=== PATIENT | male | born 1935 | race Caucasian/White ===

== ENCOUNTER 2016-08-05 02:00 | Emergency (ER) | payer MEDICARE, OTHER ==
[~2016-08-05] VITALS: Ht 172.7 cm; Wt 52.2 kg
[~2016-08-05 02:00] MED LIST: AMLO10TA2 PO; ASPI-630 PO; TAMS0.4C97 PO
--- NOTE | 2016-08-05 03:04 | RAD ---
CT HEAD AND CERVICAL SPINE WITHOUT CONTRAST History: 80-year-old male with head and neck pain after fall. Comparison: None. Procedure: Axial images are obtained of the head from the skull base through the vertex without IV contrast. Noncontrast helical CT of the cervical spine was performed. Axial, sagittal, and coronal reconstructions were obtained. PQRS compliance statement: One or more of the following individualized dose reduction techniques were utilized for this examination: 1. Automated exposure control 2. Adjustment of the mA and/or kV according to patient size 3. Use of iterative reconstruction technique Head Findings: The ventricles and sulci appear age-appropriate. No mass-effect, midline shift, hemorrhage or obvious acute infarction is identified. Diffuse periventricular and subcortical white matter low-attenuation is nonspecific although suggestive of chronic microvascular ischemia. Bone windows demonstrate no significant calvarial abnormality. Scattered mucosal thickening is present within the visualized paranasal sinuses. Mastoid air cells are well aerated. A couple lipomas are seen within the left scalp. Cervical Spine Findings: There is no evidence of acute fracture or dislocation. Normal cervical lordosis and alignment is maintained. Vertebral body heights are maintained. Posterior elements are intact. Significant degenerative changes are present throughout. Visualized soft tissues of the neck demonstrate no significant abnormalities. The visualized lung apices are clear, with prominent emphysematous changes present. IMPRESSION: 1. No acute intracranial abnormality. 2. No acute fracture of the cervical spine. Electronically signed by: Naty Pabon MD (08/05/2016 3:00 AM)
[2016-08-05 03:08] LABS: BASO # 0.1 x10^3/uL (0.0-0.2); BASO % 0 % (0-3); EOS % 0 % (0-3); HEMATOCRIT 42.4 % (39.0-53.0); LYMPH # 1.3 x10^3/uL (1.0-4.8); LYMPH % 6 % (24-48); MEAN CORPUSCULAR HEMOGLOBIN 31 pg (25-35); MEAN CORPUSCULAR HGB CONC 33 g/dL (31-37); MEAN CORPUSCULAR VOLUME 94 fL (79-100); MONO % 7 % (0-9); NEUT % 87 % (31-73); PLATELET COUNT 312 x10^3/uL (140-400); RED BLOOD COUNT 4.52 x10^6/uL (4.30-5.70); RED CELL DISTRIBUTION WIDTH 14.1 % (11.5-14.5); WHITE BLOOD COUNT 20.7 x10^3/uL (4.0-11.0)
[2016-08-05 03:09] LABS: BILIRUBIN,URINE NEGATIVE (NEG); GLUCOSE,URINE NEGATIVE (NEG); NITRITE,URINE NEGATIVE (NEG); PROTEIN,URINE 100 mg/dL (NEG-TRACE); UROBILINOGEN,URINE 0.2 mg/dL (0.2 mg/dL)
[2016-08-05 03:21] LABS: BACTERIA,URINE FEW /HPF (0-FEW); RBC,URINE TNTC /HPF (0-2); SQUAMOUS EPITHELIAL CELL,UR FEW /LPF; WBC,URINE >40 /HPF (0-4)
[2016-08-05 03:22] LABS: CALCIUM 9.4 mg/dL (8.5-10.1); CREATININE 1.8 mg/dL (0.7-1.3); GFR 36.4; POTASSIUM 3.5 mmol/L (3.5-5.1)
[2016-08-05 03:29] LABS: ALBUMIN 3.6 g/dL (3.4-5.0); TOTAL BILIRUBIN 0.6 mg/dL (0.2-1.0); TOTAL PROTEIN 7.3 g/dL (6.4-8.2)
[2016-08-05 04:00] VITALS: BP 198/111
--- NOTE | 2016-08-05 04:08 | ED.ADGEN ---
Past Medical History Past Medical History: Hypertension Additional Past Medical Histor: chonic kidney disease,syncopy,bph Past Surgical History: Other Additional Past Surgical Histo: UNKNOWN Alcohol Use: Occasionally Drug Use: None Adult General Chief Complaint Chief Complaint: BLOOD IN URINE HPI HPI Patient is a 80 [facility] history of dementia who presents with fall from standing, and urethral trauma after removing the catheter. she was found covered in blood after the Mcmahan catheter was removed by the patient. There is a small left frontal scalp hematoma without evidence of additional injury. The fall was not witnessed the patient is alert oriented to person but not place and time and situation cannot call the circumstances surrounding his fall. recent no witnessed or reported loss of consciousness. History is otherwise limited. Review of Systems Review of Systems ROS as per HPI. Current Medications Current Medications Current Medications Medications (Trade) Dose Ordered Sig/[place] Start Time Stop Time Status Last Admin Dose Admin Levofloxacin (Levaquin) 750 mg 1X ONCE 08/05/16 04:00 08/05/16 04:01 Allergies Allergies Allergies Coded Allergies Type Severity Reaction Last Updated Verified No Known Drug Allergies 07/30/16 No Physical Exam Physical Exam Constitutional: Well developed, well nourished, no acute distress, non-toxic appearance. HENT: Normocephalic, minor left scalp hematoma., bilateral external ears normal , oropharynx moist, no oral exudates, nose normal. Eyes: PERRL. Neck: Normal range of motion, no midline tenderness. Cardiovascular:Heart rate regular rhythm, no murmur. Lungs & Thorax: Bilateral breath sounds clear to auscultation. Abdomen: Bowel sounds normal, soft, no tenderness. , dried blood on urethral. Skin: Warm, dry. Back: No tenderness. Extremities: No tenderness. Neurologic: Alert and oriented X 1, normal motor function, normal sensory function, no focal deficits noted. Psychologic: Affect normal, judgement normal, mood normal. Current Patient Data Vital Signs Vital Signs Date Time Temp Pulse Resp B/P (MAP) Pulse Ox O2 Delivery O2 Flow Rate FiO2 08/05/16 02:01 97.8 98 20 220/91 (134) 98 Room Air 97.8 Lab Values Laboratory Tests Test 08/05/16 02:40 08/05/16 02:47 White Blood Count 20.7 x10^3/uL (4.0-11.0) #H Red Blood Count 4.52 x10^6/uL (4.30-5.70) Hemoglobin 14.0 g/dL (13.0-17.5) Hematocrit 42.4 % (39.0-53.0) Mean Corpuscular Volume 94 fL (79-100) Mean Corpuscular Hemoglobin 31 pg (25-35) Mean Corpuscular Hemoglobin Concent 33 g/dL (31-37) Red Cell Distribution Width 14.1 % (11.5-14.5) Platelet Count 312 x10^3/uL (140-400) Neutrophils (%) (Auto) 87 % (31-73) H Lymphocytes (%) (Auto) 6 % (24-48) L Monocytes (%) (Auto) 7 % (0-9) Eosinophils (%) (Auto) 0 % (0-3) Basophils (%) (Auto) 0 % (0-3) Neutrophils # (Auto) 18.0 x10^3uL (1.8-7.7) H Lymphocytes # (Auto) 1.3 x10^3/uL (1.0-4.8) Monocytes # (Auto) 1.4 x10^3/uL (0.0-1.1) H Eosinophils # (Auto) 0.0 x10^3/uL (0.0-0.7) Basophils # (Auto) 0.1 x10^3/uL (0.0-0.2) Platelet Estimate Pending Sodium Level 137 mmol/L (136-145) Potassium Level 3.5 mmol/L (3.5-5.1) Chloride Level 97 mmol/L (98-107) L Carbon Dioxide Level 31 mmol/L (21-32) Anion Gap 9 (6-14) Blood Urea Nitrogen 22 mg/dL (8-26) Creatinine 1.8 mg/dL (0.7-1.3) H Estimated GFR (Cockcroft-Gault) 36.4 BUN/Creatinine Ratio 12 (6-20) Glucose Level 125 mg/dL (70-99) H Calcium Level 9.4 mg/dL (8.5-10.1) Total Bilirubin 0.6 mg/dL (0.2-1.0) Aspartate Amino Transferase (AST) 28 U/L (15-37) Alanine Aminotransferase (ALT) 28 U/L (16-63) Alkaline Phosphatase 55 U/L (46-116) Total Protein 7.3 g/dL (6.4-8.2) Albumin 3.6 g/dL (3.4-5.0) Albumin/Globulin Ratio 1.0 (1.0-1.7) Urine Collection Type Unknown Urine Color Yellow Urine Clarity Clear Urine pH 7.0 Urine Specific [place] 1.010 Urine Protein 100 mg/dL (NEG-TRACE) Urine Glucose (UA) Negative mg/dL (NEG) Urine Ketones (Stick) Negative mg/dL (NEG) Urine Blood Large (NEG) Urine Nitrite Negative (NEG) Urine Bilirubin Negative (NEG) Urine Urobilinogen Dipstick 0.2 mg/dL (0.2 mg/dL) Urine Leukocyte Esterase Moderate (NEG) Urine RBC Tntc /HPF (0-2) Urine WBC >40 /HPF (0-4) Urine Squamous Epithelial Cells Few /LPF Urine Bacteria Few /HPF (0-FEW) Urine Hyaline Casts Few /HPF Laboratory Tests 08/05/16 02:40 Laboratory Tests 08/05/16 02:40 EKG EKG [] Radiology/Procedures Radiology/Procedures [] Course & Med Decision Making Course & Med Decision Making Pertinent Labs and Imaging studies reviewed. (See chart for details) [Mcmahan catheter reinserted. UA obtained, possible resistant urinary tract infection. Currently on Rocephin and oriented in some. Urine culture obtained positive for beta-lactam group B strep.Patient given single dose of Levaquin in the emergency department. New urine culture obtained. Patient resting comfortably afebrile not tachycardic. Will return to [facility] facility with instructions for [facility] staff to review urine culture results, Mcmahan catheter placement with [facility] attending with recommendations of repeat CBC and chemistry in 3 days. Dragon Disclaimer Dragon Disclaimer This electronic medical record was generated, in whole or in part, using a voice recognition dictation system. FLORENCIO STOKES DO Aug 05, 2016 04:08
[2016-08-05 05:27] LABS: PLT ESTIMATE ADEQUATE (ADEQUATE)
--- NOTE | 2016-08-05 19:08 | EKG ---
[facility] [address] [place] [address] Test Date: 2016-08-05 Test Time: 02:27:42 Pat Name: ELIAS DEJESUS Department: Room: Gender: M Mail Processor: : 1935 Requested By: FLORENCIO STOKES Order Number: [id number] Reading MD: Philipp Adams Measurements Intervals [place] Rate: 78 P: 90 [place]: 132 QRS: -55 QRSD: 114 T: 62 QT: 378 QTc: 434 Interpretive Statements SINUS RHYTHM LEFT ATRIAL ABNORMALITY ABNORMAL LEFT AXIS DEVIATION LEFT ANTERIOR FASCICULAR BLOCK LVH WITH REPOLARIZATION ABNORMALITY QRS(T) CONTOUR ABNORMALITY CANNOT RULE OUT old anteroseptal ME RI6.01 Unconfirmed report No previous ECG available for comparison Electronically Signed On 08-06-2016 15:47:41 CDT by Philipp Adams
== END 2016-08-05 05:00 | disposition home or self-care (01) ==
LOC: ER 02:00
DX: T83.89XA Other specified complication of genitourinary prosthetic devices, implants and grafts, initial encounter (principal); S00.03XA Contusion of scalp, initial encounter; F03.90 Unspecified dementia, unspecified severity, without behavioral disturbance, psychotic disturbance, mood disturbance, and anxiety; I12.9 Hypertensive chronic kidney disease with stage 1 through stage 4 chronic kidney disease, or unspecified chronic kidney disease; N18.9 Chronic kidney disease, unspecified; N40.0 Benign prostatic hyperplasia without lower urinary tract symptoms; X58.XXXA Exposure to other specified factors, initial encounter; Y93.9 Activity, unspecified; Y99.8 Other external cause status; Y73.8 Miscellaneous gastroenterology and urology devices associated with adverse incidents, not elsewhere classified; Y92.89 Other specified places as the place of occurrence of the external cause
CPT/HCPCS: 36415; 51702; 70450; 72125; 80053; 81001; 85007; 85027; 87086; 93005; P9612; 99285-25

== ENCOUNTER 2016-08-26 17:42 | Emergency (ER) | payer MEDICARE, OTHER ==
[~2016-08-26] VITALS: Ht 167.6 cm; Wt 54.4 kg
--- NOTE | 2016-08-26 18:13 | PHYS DOC ---
Past Medical History Past Medical History: Hypertension Additional Past Medical Histor: chonic kidney disease,syncopy,bph Past Surgical History: Other Additional Past Surgical Histo: UNKNOWN Alcohol Use: Occasionally Drug Use: None Adult General Chief Complaint Chief Complaint: MECHANICAL FALL HPI HPI Patient is a pleasant 80-year-old male with history of hypertension, syncope collapse, chronic UTI, sepsis, chronic kidney disease and encephalopathy who comes here from [facility] because of a fall he sustained early this morning. It was an unwitnessed fall patient claimed that he slid out of the bed onto the floor landing on his gluteus dusty on his right. He has no complaints other than soreness on his bottom. The [facility] refer him to our facility because he was apparently altered. Patient is quite reticent he removes the entire event. He has no loss of consciousness is no complaint of neck pain or back pain, no complaint of headache, no complaint of nausea, vomiting, chest pain or other symptoms. He has chronic right ankle pain without is not new. Patient is actually hungry and when the nurse left him his morning he was assumed she was getting some heat. And he remarked that she had not return. he was completely lucid and has no amnesia to the events. Though he is only able to transfer for wheel chair transfers movement today's not impeded by pain. Review of Systems Review of Systems Constitutional: Denies fever or chills [] Eyes: Denies change in visual acuity, redness, or eye pain [] HENT: Denies nasal congestion or sore throat [] Respiratory: Denies cough or shortness of breath [] Cardiovascular: No additional information not addressed in HPI [] GI: Denies abdominal pain, nausea, vomiting, bloody stools or diarrhea [] : Denies dysuria or hematuria [] Musculoskeletal: Denies back pain or he does complain of right ankle pain which is chronic in nature and gluteal pain on the right. Integument: Denies rash or skin lesions [] Neurologic: Denies headache, focal weakness or sensory changes [] Endocrine: Denies polyuria or polydipsia [] Allergies Allergies Allergies Coded Allergies Type Severity Reaction Last Updated Verified No Known Drug Allergies 07/30/16 No Physical Exam Physical Exam he is thin cachectic vital signs are noted. Constitutional: Well developed, well nourished, no acute distress, non-toxic appearance. [] HENT: Normocephalic, atraumatic, bilateral external ears normal, dry mm no oral exudates, nose normal. [] Eyes: PERRLA, EOMI, conjunctiva normal, no discharge. [] Neck: Normal range of motion, no tenderness, supple, no stridor. [] Cardiovascular:Heart rate regular rhythm, no murmur [] Lungs & Thorax: Bilateral breath sounds clear to auscultation [] Abdomen: Bowel sounds normal, soft, no tenderness, no masses, no pulsatile masses. [] Skin: Warm, dry, bruises in various states of healing upper external is bilaterally. As noted varicosities in the lower extremity bilaterally. He's got a small contusion over the middle aspect of the gluteus dusty on the right right over the inferior ramus of the buttocks. Back: No tenderness, no CVA tenderness. [] Extremities: No tenderness, no cyanosis, no clubbing, ROM intact, no edema. [] Neurologic: Alert and oriented X 3 patient is at baseline with normal 4 out of 5 strength in his lower extremities Psychologic: Affect normal, judgement normal, mood normal. [] Patient is quite lucid and remembers the events. Current Patient Data Vital Signs Vital Signs Date Time Temp Pulse Resp B/P (MAP) Pulse Ox O2 Delivery O2 Flow Rate FiO2 08/26/16 17:44 98.1 77 18 191/81 (117) 95 Room Air 98.1 EKG EKG [] Radiology/Procedures Radiology/Procedures [] Course & Med Decision Making Course & Med Decision Making Pertinent Labs and Imaging studies reviewed. (See chart for details) I reviewed vital signs, this patient's history and physical as well as EMS report. Patient has a gait disturbance and slipped out of his bed this morning onto the hard concrete ground. He did not discussed as he denies any neck pain or headache he denies any focal bony tenderness to palpation other than on his bottom when he landed. Given the fact that he has no loss of consciousness and he is completely remembering the event patient only had pelvis and hip x-rays done on the right. Pain is mild at best he is able to move in the bed without issue. X-rays are negative he will be [facility]. [] Patient's 4 view x-ray of his hip and pelvis reveal no fracture the pelvic ring looks intact. Patient is in minimal pain and will be discharged [facility] to [facility] Patient tells me that their symptoms given during CC are improved. We reviewed radiology reports with patient Time is now 6:56 PM Impression: Fall out of bed with no apparent injury other than the hip contusion Disposition: Discharge back to the fci. Dragon Disclaimer Dragon Disclaimer This electronic medical record was generated, in whole or in part, using a voice recognition dictation system. Departure Departure Impression: Primary Impression: Accident due to mechanical fall without injury Additional Impression: Contusion of hip, right Disposition: 01 HOME, SELF-CARE Condition: STABLE Referrals: NO PCP (PCP) Patient Instructions: Contusion, Fall Prevention and Home Safety Additional Instructions: Please return for any new or increasing symptoms or feel any question concerns. Return for any change in mental status or if there are new symptoms you would like us to investigate Problem Qualifiers NABEEL ZULUAGA MD Aug 26, 2016 18:13
[2016-08-26 20:12] VITALS: BP 207/99
--- NOTE | 2016-08-27 09:47 | RAD ---
Indication fall. Pain. Right hip pain. Targeted AP and lateral views of the right hip were obtained as well as 2 AP views of the pelvis. No acute bony finding is seen. Moderately extensive vascular calcification is noted. IMPRESSION:: No acute bony finding
== END 2016-08-26 20:23 | disposition home or self-care (01) ==
LOC: ER 17:42
DX: S70.01XA Contusion of right hip, initial encounter (principal); I12.9 Hypertensive chronic kidney disease with stage 1 through stage 4 chronic kidney disease, or unspecified chronic kidney disease; N18.9 Chronic kidney disease, unspecified; G89.29 Other chronic pain; N40.0 Benign prostatic hyperplasia without lower urinary tract symptoms; W06.XXXA Fall from bed, initial encounter; Y93.89 Activity, other specified; Y92.89 Other specified places as the place of occurrence of the external cause; Y99.8 Other external cause status; Z87.440 Personal history of urinary (tract) infections
CPT/HCPCS: 73502; 99284

== ENCOUNTER 2016-09-18 06:47 | Observation (INO) | payer MEDICARE, OTHER ==
[~2016-09-18] VITALS: Ht 167.6 cm; Wt 47.3 kg
[2016-09-18] VITALS (14 sets, daily range): BP systolic 162–232; BP diastolic 72–114
[2016-09-18] MEDS ORDERED: PROCHLORPERAZINE 10 MG/2 ML VIAL. IV PRN (07:00)
[2016-09-18] MEDS ORDERED: ONDANSETRON PF 4 MG/2 ML VIAL. IV PRN (07:00)
[2016-09-18] MEDS ORDERED: HYDROmorphone 2 MG/ML VIAL IV PRN (07:00)
[2016-09-18] MEDS ORDERED: MORPHINE SULFATE 2 MG/ML DISP.SYRIN. IV PRN (07:00)
[2016-09-18] MEDS ORDERED: IV RINGERS,LACTATED 1000ML 1,000 ML IV SCH (07:00)
[2016-09-18] MEDS ORDERED: LIDOCAINE 1% 1 ML SYRINGE. ID PRN (07:00)
[2016-09-18] MEDS ORDERED: fentaNYL PF VIAL 100 MCG/2 ML VIAL IV PRN ×2 (07:00)
[2016-09-18] MEDS ORDERED: Mylanta PO (07:31)
[2016-09-18] MEDS ORDERED: POTA20TA82 PO (07:31)
[2016-09-18] MEDS ORDERED: TAMS0.4C97 PO (07:31)
[2016-09-18] MEDS ORDERED: Lidoderm TD (07:31)
[2016-09-18] MEDS ORDERED: DOCU-109 PO (07:31)
[2016-09-18] MEDS ORDERED: MAGN400O7 PO (07:31)
[2016-09-18] MEDS ORDERED: FINA5TAB PO (07:31)
[2016-09-18] MEDS ORDERED: ACET325T9 PO (07:31)
[2016-09-18] MEDS ORDERED: HYDR-2867 PO (07:31)
[2016-09-18] MEDS ORDERED: AMLO10TA4 PO (07:31)
[2016-09-18] MEDS ORDERED: BISA-42 PO (07:31)
[2016-09-18 07:50] LABS: HEMATOCRIT 28.8 % (39.0-53.0); RED BLOOD COUNT 3.17 x10^6/uL (4.30-5.70); RED CELL DISTRIBUTION WIDTH 14.7 % (11.5-14.5); WHITE BLOOD COUNT 17.3 x10^3/uL (4.0-11.0)
[2016-09-18 07:58] LABS: CALCIUM 8.4 mg/dL (8.5-10.1); CREATININE 1.3 mg/dL (0.7-1.3); GFR 52.9
[2016-09-18 08:00] LABS: POTASSIUM 2.4 mmol/L (3.5-5.1)
[2016-09-18 08:01] LABS: INR 0.9 (0.8-1.1); PROTHROMBIN TIME PATIENT 11.9 SEC (11.7-14.0)
[2016-09-18] MEDS ORDERED: POTASSIUM CHLORIDE 20 MEQ TABLET.ER. PO ONE (08:15)
[2016-09-18] MEDS ORDERED: POTASSIUM CHLORIDE 20MEQ 50 ML IV ONE (08:15)
[2016-09-18] MEDS: POTASSIUM CHLORIDE 10MEQ 100 ML IV SCH ×2 (08:36→10:14)
[2016-09-18] MEDS ORDERED: BISACODYL 5 MG TABLET.DR. PO PRN (09:45)
[2016-09-18] MEDS ORDERED: ACETAMINOPHEN 325 MG TABLET. PO PRN (09:45)
[2016-09-18] MEDS ORDERED: hydrALAZINE 20 MG/ML VIAL. IVP ONE (10:00)
[2016-09-18] MEDS: LABETALOL 20 MG/4 ML DISP.SYRIN. IVP PRN ×2 (12:54→22:47)
[2016-09-18] MEDS ORDERED: IODIXANOL 320 MG/ML 100 ML VIAL. ONE (13:27)
[2016-09-18] MEDS ORDERED: LIDOCAINE 2% 20 ML VIAL. ONE (13:27)
[2016-09-18] MEDS ORDERED: MIDAZOLAM HCL/PF 2 MG/2 ML VIAL. ONE (13:56)
[2016-09-18] MEDS ORDERED: fentaNYL PF VIAL 100 MCG/2 ML VIAL ONE (13:57)
[2016-09-18] MEDS ORDERED: fentaNYL PF VIAL 100 MCG/2 ML VIAL IV ONE (14:00)
[2016-09-18] MEDS ORDERED: IODIXANOL 320 MG/ML 100 ML VIAL. IART ONE (14:00)
[2016-09-18] MEDS ORDERED: MIDAZOLAM HCL/PF 2 MG/2 ML VIAL. IV ONE (14:00)
[2016-09-18] MEDS ORDERED: LIDOCAINE 2% 20 ML VIAL. IJ ONE (14:00)
[2016-09-18] MEDS ORDERED: CONTRAST GIVEN MC PRN (14:00)
[2016-09-18] MEDS ORDERED: BIVALIRUDIN 250 MG VIAL. IV ONE ×2 (14:31→14:45)
[2016-09-18] MEDS ORDERED: VERAPAMIL 5 MG/2 ML VIAL. ONE ×2 (14:43)
[2016-09-18] MEDS ORDERED: HEPARIN for IV BOLUS 10,000 UNIT/10 ML VIAL. ONE (14:44)
[2016-09-18] MEDS ORDERED: NITROGLYCERIN 4MG SYRINGE 4 MG, VERAPAMIL 10 MG, HEPARIN SODIUM 4,000 UNIT, VIPERSLIDE ... IART ONE ×5 (15:00)
[2016-09-18] MEDS ORDERED: TICAGRELOR 90 MG TABLET. ONE (15:15)
[2016-09-18] MEDS ORDERED: TICAGRELOR 90 MG TABLET. PO ONE (15:30)
[2016-09-18] MEDS ORDERED: NITROGLYCERIN 200 MCG/2 ML SYRINGE FOR CATH/VASC LAB. IART ONE (15:30)
[2016-09-18] MEDS ORDERED: NITROGLYCERIN SUBLINGUAL 0.4 MG BOTTLE OF 25. SL ONE (15:45)
[2016-09-18] MEDS: hydrALAZINE 10 MG TABLET PO SCH ×2 (15:55→20:33)
--- NOTE | 2016-09-18 17:01 | CARD ---
APPROVED REPORT Procedure(s) performed: SEDATION TIME: 151 MINUTES Left heart cath, Coronary angiography, Supravalvular aortography HISTORY The patient is a 81 year-old male with a history of : previous CHF, tobacco history() , hypertension, dyslipidemia. INDICATION The indication(s) include : dyspnea. CASE TECHNIQUE During this case, Fluoroscopy and low osmolar contrast were used for imaging. PROCEDURE NARRATIVE The patient was brought electively to the cardiac catheterization lab. A timeout was performed confi rming the patient's name, date of , procedure, and site of procedure. All necessary personnel w ere wearing the appropriate protective equipment and radiation monitor devices. After explaining the risks and benefits of the procedure and alternatives, informed consent was obtained. (See nursing no milo for medications administered). The right groin was sterilely prepped and draped in the usual fas hion. The right groin was infiltrated with 20 mL of 2% lidocaine for subcutaneous anesthesia. A 6 F sheath was inserted into the right femoral artery without difficulty via the modified seldinger techn ique with an 18G needle and a J-tipped guidewire. Due to severe iliac PAD, there was difficulty advan cing a J-tipped guide wire and therefore a [place]-wire advantage wire was used to tranverse the calcif ic inflow disease. Subsequently, right and left coronary angiography was performed using standard JR4 and JL4 diagnostic catheters. Left ventricular end diastolic pressure was obtained with a pigtail c atheter and pullback was performed after left ventriculography. HEMODYNAMICS: LVEDP 26 mm Hg AO: 180/62 *No gradient on LV to aortic pullback. Aortography: Mild to moderate eccentric aortic insufficiency. CORONARY ANGIOGRAPHY: LM is a large caliber vessel with normal angiographic appearance. LAD is a large caliber heavily calcified vessel a mid 80% stenosis. D1/D2 are small caliber vessels with ostial 70% stenosis. LCx is a moderate caliber non-dominant vessel with a proximal to mid 50% stenosis. OM1 is a large caliber vessel with normal angiographic appearance. RCA is a large caliber dominant vessel with a proximal 20% stenosis. RPDA and RPL are small to caliber vessels with mild diffuse irregularities of up to 10%. INTERVENTIONAL TECHNIQUE: PCI OF THE LAD Bivalirudin was used for anticoagulation. Initial angioplasty with a 3.5 mm balloon was unsuccessful due to heavy calcification. Subsequently rotational atherectomy was performed and then the lesion was stented. Guide: 6Fr EBU 3.75 Wire: ProCSRware, Rotablator Balloons: 2.0/15, 3.5/20, 3.5/15 (NC) Atherectomy: 1.5 mm [place] Stent: 3.5/33 Xience AZAR, Post-dilated with a 3.75mm NC balloon at 18 waqar. Post-PCI angiography revealed excellent stent expansion with JUANITA 3 flow in the LAD and no evidence o f guide or wire related complications. Limited right common femoral angiography demonstrated an 80% external iliac stenosis as well as a flu sh occlusion of the RSFA. Hemostasis was achieved with manual compression as the mynx closure device failed. Patient received Ticagrelor 180mg at case completion. No immediate complications noted. Conclusion 1. Two vessel CAD 2. Successful PTCA/Atherectomy and stenting of the LAD with a Xience 3.5/33 AZAR, post-dilated with a 3.75mm NC balloon. 3. Severe RLE PAD Recommendations ASA 81mg daily indefinitely Ticagrelor 90mg bid x 1 year. Cardiac rehab. BP control. Staged PVI of the RLE in 4 weeks.
[2016-09-18] MEDS ORDERED: amLODIPine BESYLATE 10 MG TABLET PO ONE (20:00)
[2016-09-18] MEDS: TAMSULOSIN 0.4 MG CAP.ER.24H. PO SCH (20:32)
[2016-09-18] MEDS: DOCUSATE SODIUM 100 MG CAPSULE. PO SCH (20:33)
[2016-09-19 03:00] VITALS: BP 178/81
[2016-09-19] MEDS ORDERED: hydrALAZINE 20 MG/ML VIAL. IVP PRN (04:00)
[2016-09-19 07:30] VITALS: BP 188/81
[2016-09-19] MEDS: TAMSULOSIN 0.4 MG CAP.ER.24H. PO SCH (08:43)
[2016-09-19] MEDS: DOCUSATE SODIUM 100 MG CAPSULE. PO SCH (08:44)
[2016-09-19] MEDS: hydrALAZINE 10 MG TABLET PO SCH (08:44)
[2016-09-19] MEDS ORDERED: FINASTERIDE 5 MG TABLET. PO SCH (09:00)
[2016-09-19] MEDS ORDERED: amLODIPine BESYLATE 10 MG TABLET PO SCH (09:00)
[2016-09-19] MEDS ORDERED: ASPIRIN CHEWABLE 81 MG TABLET. PO SCH (09:00)
[2016-09-19] MEDS ORDERED: TICAGRELOR 90 MG TABLET. PO SCH (09:00)
[2016-09-19 11:00] VITALS: BP 162/71
--- NOTE | 2016-09-19 12:02 | PDOC3 ---
TENISHA BURKS BUS TRANSPORTATION MANAGER 09/19/16 1202: Discharge Summary Visit Information Date of Admission: Sep 18, 2016 Date of Discharge: Sep 19, 2016 Admitting Diagnosis: CAD Final Diagnosis CAD with PCI/AZAR, PAD Brief Hospital Course Allergies Allergies Coded Allergies Type Severity Reaction Last Updated Verified No Known Drug Allergies 07/30/16 No Vital Signs Vital Signs Date Time Temp Pulse Resp B/P (MAP) Pulse Ox O2 Delivery O2 Flow Rate FiO2 09/19/16 11:00 98.3 69 18 162/71 (101) 95 Room Air 98.3 09/18/16 15:38 2.0 Lab Results Laboratory Tests Test 09/18/16 07:40 White Blood Count 17.3 x10^3/uL (4.0-11.0) Red Blood Count 3.17 x10^6/uL (4.30-5.70) Hemoglobin 10.0 g/dL (13.0-17.5) Hematocrit 28.8 % (39.0-53.0) Mean Corpuscular Volume 91 fL (79-100) Mean Corpuscular Hemoglobin 31 pg (25-35) Mean Corpuscular Hemoglobin Concent 35 g/dL (31-37) Red Cell Distribution Width 14.7 % (11.5-14.5) Platelet Count 390 x10^3/uL (140-400) Prothrombin Time 11.9 SEC (11.7-14.0) Prothromb Time International Ratio 0.9 (0.8-1.1) Activated Partial Thromboplast Time 26 SEC (24-38) Sodium Level 135 mmol/L (136-145) Potassium Level 2.4 mmol/L (3.5-5.1) Chloride Level 94 mmol/L (98-107) Carbon Dioxide Level 34 mmol/L (21-32) Anion Gap 7 (6-14) Blood Urea Nitrogen 15 mg/dL (8-26) Creatinine 1.3 mg/dL (0.7-1.3) Estimated GFR (Cockcroft-Gault) 52.9 Glucose Level 100 mg/dL (70-99) Calcium Level 8.4 mg/dL (8.5-10.1) Brief Hospital Course Mr Samuels is an 81 yo male admitted for further evaluation of his as he was deemed with severe via TTE with notable increasing dyspnea. LHC was performed and he was noted with 2VD. Successful PTCA/atherectomy with AZAR to his LAD was performed via right transfemoral approach which he was noted with severe iliac PAD. Aortography revealed mild to moderate eccentric aortic insufficiency. He tolerated the procedure well with no complications. Right groin arteriotomy site with bruising otherwise no swelling, significant pain, erythema and neurovascular status to bilateral LE intact. He is alert cooperative with periods of confusion. His mobility is limited and mainly utilize WC at the long term. Denies any discomfort overnight, LSCTA, abdomen soft and nontender and no significant rhythm ectopies noted. His feet are equally warm without any wounds or paresthesia. With the findings of PAD, arterial duplex has been ordered and will further discuss with pt and family in 2 weeks time. His VS has been table but his BP has been labile and his hydralazine has been increased and added low dose toprol and imdur. Unable to place on any ACEi at this time due to amount of contrast use and will reevaluate further use pending his follow up BMP and in next follow up in 2 weeks. If BP is improves then pt is to go back to [facility] and continue with brilinta and ASA combo including statin. I did discussed this with his sons in regards to his treatment plan and possible further workup in regards to his PAD. Discharge Information Condition at Discharge: Stable Follow Up: Weeks (2) Disposition/Orders: D/C to Another Facility Scheduled Amlodipine Besylate (Norvasc), 10 MG PO DAILY, (Reported) Aspirin (Aspirin), 1 TAB PO DAILY, (Reported) Docusate Sodium (Colace), 1 CAP PO BID, (Reported) Finasteride (Proscar), 5 MG PO DAILY, (Reported) Hydralazine Hcl (Hydralazine Hcl), 1 TAB PO BID Isosorbide Mononitrate (Isosorbide Mononitrate Er), 1 TAB PO DAILY Magnesium Hydroxide (Milk Of Magnesia), 400 MG PO DAILY, (Reported) Potassium Chloride (Potassium Chloride), 20 MEQ PO DAILY, (Reported) Tamsulosin Hcl (Flomax), 0.4 MG PO BID, (Reported) Ticagrelor (Brilinta), 90 MG PO BID [Lidoderm], TD DAILY, (Reported) [Mylanta], 30 ML PO DAILY, (Reported) Scheduled PRN Acetaminophen (Tylenol), 650 MG PO PRN Q4HRS PRN for PAIN, (Reported) Bisacodyl (Dulcolax), 10 MG PO PRN DAILY PRN for CONSTIPATION, (Reported) Discontinued Medications Hydralazine Hcl (Hydralazine Hcl), 1 TAB PO TID, (Reported) Patient Instructions Patient Instructions GENERAL INSTRUCTIONS: 1. Your dressing should be removed prior to leaving the hospital. 2. It is OK to shower the day after your procedure. 3. If you received stents, be sure to carry your stent information card with you in your wallet/purse at all times. 4. Call the office immediately at [phone] if you notice any fever or if there is redness, worsening tenderness/pain, increased bruising, or drainage from the puncture site. 5. Should you have bleeding from the site, lie down immediately & put pressure on the site. The pressure should be hard enough to stop the bleeding. Have the nearest person call 911. DO NOT try to drive to the ER with active bleeding. 6. If you notice a change in color, coolness to touch, or loss of feeling in the affected extremity, come to the emergency room. Please have someone drive you or call 911 if no one is available. DO NOT drive yourself. 7. If you normally take glucophage (metformin), please do not take this medicine for 48 hours following your procedure. 8. DO NOT STOP TAKING YOUR PLAVIX OR ASPIRIN UNLESS IT IS CLEARED BY A REFINING MACHINE OPERATOR OF YOUR WRINGER OPERATOR AT OUR OFFICE. 9. QUIT SMOKING: the [employer], [employer], & [employer] have cessation resources available on their websites 10. Please have someone available to drive you home from the hospital as you may be limited by sedation medications given during the procedure. Femoral (Groin) access: 1. Do no lifting, pushing, pulling, bending, stooping, or recurrent stair climbing for 3 days following your procedure. 2. Once past the first 3 days, do not do any HEAVY exertion or lifting for one week following the procedure. No gym workouts, running, lifting greater than a gallon of milk, etc 3. Do not submerge in bath or pool for one week. OK to drive 3 days following your procedure, but if going long distance, do not go alone & take hourly breaks to get out of car and walk around. Call the office at [phone] for any questions or concerns. DAVID PÉREZ MD 09/20/16 0838: Discharge Summary Brief Hospital Course Brief Hospital Course Late entry for 09/19/2016. Pt. seen and examined. Agree with above BLOCKER AND POLISHER note. No acute events overnight. No chest pain. DC today and f/u in the office in 4 weeks. D/w family. Discharge Information Scheduled Amlodipine Besylate (Norvasc), 10 MG PO DAILY, (Reported) Aspirin (Aspirin), 1 TAB PO DAILY, (Reported) Docusate Sodium (Colace), 1 CAP PO BID, (Reported) Finasteride (Proscar), 5 MG PO DAILY, (Reported) Hydralazine Hcl (Hydralazine Hcl), 1 TAB PO BID Isosorbide Mononitrate (Isosorbide Mononitrate Er), 1 TAB PO DAILY Magnesium Hydroxide (Milk Of Magnesia), 400 MG PO DAILY, (Reported) Potassium Chloride (Potassium Chloride), 20 MEQ PO DAILY, (Reported) Tamsulosin Hcl (Flomax), 0.4 MG PO BID, (Reported) Ticagrelor (Brilinta), 90 MG PO BID [Lidoderm], TD DAILY, (Reported) [Mylanta], 30 ML PO DAILY, (Reported) Scheduled PRN Acetaminophen (Tylenol), 650 MG PO PRN Q4HRS PRN for PAIN, (Reported) Bisacodyl (Dulcolax), 10 MG PO PRN DAILY PRN for CONSTIPATION, (Reported) Discontinued Medications Hydralazine Hcl (Hydralazine Hcl), 1 TAB PO TID, (Reported) TENISHA BURKS APRN Sep 19, 2016 12:02 DAVID PÉREZ MD Sep 20, 2016 08:38
[2016-09-19 12:42] LABS: CREATININE 1.5 mg/dL (0.7-1.3); GFR 44.8; POTASSIUM 3.3 mmol/L (3.5-5.1)
[2016-09-19] MEDS ORDERED: ISOSORBIDE MONONITRATE ER 30 MG TAB.ER.24H PO SCH (13:00)
[2016-09-19] MEDS ORDERED: METOPROLOL SUCC 24HR ER 25 MG TAB.ER.24H. PO SCH (13:00)
[2016-09-19] MEDS ORDERED: LISINOPRIL 10 MG TABLET PO SCH (13:00)
[2016-09-19 15:20] VITALS: BP 186/81
[2016-09-19 15:45] VITALS: BP 164/86
[2016-09-19] MEDS ORDERED: TICA90TA PO (16:10)
[2016-09-19] MEDS ORDERED: ISOS30TA4 PO (16:10)
[2016-09-19] MEDS ORDERED: HYDR-2868 PO (16:10)
[2016-09-19] MEDS ORDERED: ATORVASTATIN CALCIUM 10 MG TABLET. PO SCH (21:00)
[2016-09-19] MEDS ORDERED: hydrALAZINE 25 MG TABLET PO SCH (21:00)
--- NOTE | 2016-09-20 11:10 | RAD ---
APPROVED REPORT Patient Location: IN-PATIENT Indications PAD Risk Factors Hypertension Smoking VELOCITY AND DOPPLER WAVEFORM ANALYSIS RIGHT cm/secWaveformSeverity LEFT c m/secWaveformSeverity pCFA 76.8pCFA 72.6 Prof Fem Art. 244.9Prof Fem Art. 189.0 Fem Art Prox. 83.6Fem Art Prox. 59.1 Fem Art Mid. 11.2Fem Art Mid. 14.0 Fem Art Dist. Fem Art Dist. 14.5 Pop Art(Fossa) 43.6Pop Art(Fossa) 40.9 VOCATIONAL GUIDANCE COUNSELOR Dist. 44.7PTA Dist. 35.9 Per Art Dist. 25.0Per Art Dist. 28.9 JESSICA Dist. 35.6ATA Dist. 32.2 Findings Ellsworth scale images of the bilateral lower extremity arterial vessels reveals significant atherosclerot ic plaque. The velocities are elevated in the profunda femoris on the right side and left side. Diminished flow is noted in the right SFA consistent with most likely an occlusion. The ears reconstitution of flow i n the popliteal artery with monophasic waveforms below the knee. On the left there is again increase in velocity at the level of the profunda femoris 289 cm/s with mo nophasic waveforms throughout the course of the SFA and popliteal segments. The below-knee vessels ar e also monophasic and flow. Nonetheless, there is three-vessel runoff below the knee. Critical Notification Critical Value: No Physician Notified <Conclusion> 1. Significant bilateral superficial femoral artery and inflow disease. Significant plaque noted thro ughout the arterial course.
== END 2016-09-19 16:11 ==
LOC: CCL 06:47 → 2 NORTH 08:18
PROVIDERS: ADMIT Internal Medicine Cardiovascular Disease; ATTEND Internal Medicine Cardiovascular Disease
DX: I25.10 Atherosclerotic heart disease of native coronary artery without angina pectoris (principal); I73.9 Peripheral vascular disease, unspecified; I11.0 Hypertensive heart disease with heart failure; I50.9 Heart failure, unspecified; I35.1 Nonrheumatic aortic (valve) insufficiency; E78.5 Hyperlipidemia, unspecified; Z79.82 Long term (current) use of aspirin; Z87.891 Personal history of nicotine dependence
CPT/HCPCS: 36415; 80048; 85027; 85610; 85730; 92933; 93458; 93567; 93925; 96374; 96375; 96376; C1713; C1724; C1725; C1769; C1771; C1887; C1892; G0269; G0378; G0379; J0360; J0583; J1644; J2250; J3010; J3480; J3490; J7030; 99152; 99153; J2001

== ENCOUNTER 2017-03-29 08:58 | Inpatient (IN) | payer MEDICARE, OTHER ==
[2017-03-29] MEDS: IV NORMAL SALINE 1000ML BAG 1,000 ML IV ×3 (09:25→20:57)
[2017-03-29 09:32] LABS: BASO % 0 % (0-3); BILIRUBIN,URINE SMALL (NEG); CLARITY,URINE CLOUDY; COLOR,URINE YELLOW; EOS % 0 % (0-3); GLUCOSE,URINE NEGATIVE (NEG); HEMATOCRIT 34.9 % (39.0-53.0); HEMOGLOBIN 11.2 g/dL (13.0-17.5); LYMPH # 1.5 x10^3/uL (1.0-4.8); LYMPH % 6 % (24-48); MEAN CORPUSCULAR HEMOGLOBIN 27 pg (25-35); MEAN CORPUSCULAR HGB CONC 32 g/dL (31-37); MEAN CORPUSCULAR VOLUME 84 fL (79-100); MONO # 0.6 x10^3/uL (0.0-1.1); MONO % 3 % (0-9); NEUT # 22.8 x10^3uL (1.8-7.7); NEUT % 91 % (31-73); NITRITE,URINE NEGATIVE (NEG); PLATELET COUNT 545 x10^3/uL (140-400); PROTEIN,URINE 100 mg/dL (NEG-TRACE); RED BLOOD COUNT 4.18 x10^6/uL (4.30-5.70); RED CELL DISTRIBUTION WIDTH 21.1 % (11.5-14.5); UROBILINOGEN,URINE 0.2 mg/dL (0.2 mg/dL)
[2017-03-29 09:34] LABS: ADD MAN DIFF? YES
[2017-03-29 09:38] LABS: FECAL OB PT POSITIVE (NEG); NEG OBC FOB NEG; POS OBC FOB POS
[2017-03-29 09:40] LABS: ANION GAP 14 (6-14); BLOOD UREA NITROGEN 27 mg/dL (8-26); BUN/CREATININE RATIO 14 (6-20); CALCIUM 8.8 mg/dL (8.5-10.1); CARBON DIOXIDE 24 mmol/L (21-32); CHLORIDE 103 mmol/L (98-107); CREATININE 1.9 mg/dL (0.7-1.3); GFR 34.1; GLUCOSE 137 mg/dL (70-99); SODIUM 141 mmol/L (136-145)
[2017-03-29 09:41] LABS: PARTIAL THROMBOPLASTIN TIME 30 SEC (24-38); PROTHROMBIN TIME PATIENT 12.9 SEC (11.7-14.0)
[2017-03-29 09:46] LABS: ALBUMIN 2.3 g/dL (3.4-5.0); ALBUMIN/GLOBULIN RATIO 0.5 (1.0-1.7); ALK PHOS 97 U/L (46-116); ALT (SGPT) 20 U/L (16-63); AST (SGOT) 27 U/L (15-37); MAGNESIUM 2.1 mg/dL (1.8-2.4); TOTAL BILIRUBIN 0.4 mg/dL (0.2-1.0); TOTAL PROTEIN 6.5 g/dL (6.4-8.2)
[2017-03-29 09:47] LABS: TROPONINI 0.036 ng/mL (0.000-0.055)
[2017-03-29 09:49] LABS: BACTERIA,URINE MANY /HPF (0-FEW)
[2017-03-29 09:50] LABS: RBC,URINE OCC /HPF (0-2); WBC,URINE >40 /HPF (0-4); YEAST,URINE PRESENT /HPF
[2017-03-29 09:51] LABS: NT-PRO BNP 3585 pg/mL (0-449)
[2017-03-29 09:54] LABS: THYROID STIM HORMONE (TSH) 1.479 uIU/mL (0.358-3.74)
[2017-03-29 10:02] LABS: LACTIC ACID 2.6 mmol/L (0.4-2.0)
[2017-03-29 10:11] LABS: % BANDS 6 % (0-9); % LYMPHS 5 % (24-48); % MONOS 1 % (0-10); % SEGS 88 % (35-66); PLT ESTIMATE INCREASED (ADEQUATE)
[2017-03-29 10:12] LABS: ANISOCYTOSIS SLIGHT; POIKILOCYTOSIS SLIGHT
[2017-03-29] MEDS ORDERED: ONDANSETRON PF 4 MG/2 ML VIAL. IV (11:00)
[2017-03-29] MEDS ORDERED: ACETAMINOPHEN 325 MG TABLET. PO (11:00)
[2017-03-29] MEDS ORDERED: ELECTROLYTE (NON-ICU) PROTOCOL MC (13:30)
[2017-03-29] MEDS: POTASSIUM CHLORIDE 20 MEQ TABLET.ER. PO (17:00)
[2017-03-29] MEDS: POTASSIUM CL 20MEQ D5-0.2%NACL 1,000 ML IV (17:00)
[2017-03-29] MEDS: MAGNESIUM SULFATE 2GM 50 ML IV (17:00)
[2017-03-29] MEDS: POTASSIUM CHLORIDE 20 MEQ/15 ML ORAL LIQUID. FT (17:00)
[2017-03-29] MEDS: POTASSIUM CHLORIDE 20 MEQ/15 ML ORAL LIQUID. PO ×2 (18:00→21:53)
[2017-03-29] MEDS ORDERED: POTASSIUM & SODIUM PHOSPHATES PACKET. PO (21:00)
[2017-03-29] MEDS: MAGNESIUM OXIDE 400 MG TABLET PO (21:53)
[2017-03-30 01:14] LABS: MRSA BY PCR Negative (Negative)
[2017-03-30] MEDS: IV NORMAL SALINE 1000ML BAG 1,000 ML IV (01:32)
[2017-03-30 04:05] LABS: ADD MAN DIFF? NO
[2017-03-30 04:10] LABS: BASO # 0.1 x10^3/uL (0.0-0.2); BASO % 0 % (0-3); EOS % 0 % (0-3); HEMATOCRIT 29.7 % (39.0-53.0); HEMOGLOBIN 9.4 g/dL (13.0-17.5); LYMPH # 1.1 x10^3/uL (1.0-4.8); LYMPH % 4 % (24-48); MEAN CORPUSCULAR HEMOGLOBIN 27 pg (25-35); MEAN CORPUSCULAR HGB CONC 32 g/dL (31-37); MEAN CORPUSCULAR VOLUME 86 fL (79-100); MONO # 0.6 x10^3/uL (0.0-1.1); MONO % 2 % (0-9); NEUT # 25.9 x10^3uL (1.8-7.7); NEUT % 94 % (31-73); PLATELET COUNT 425 x10^3/uL (140-400); RED BLOOD COUNT 3.47 x10^6/uL (4.30-5.70); RED CELL DISTRIBUTION WIDTH 21.2 % (11.5-14.5); WHITE BLOOD COUNT 27.7 x10^3/uL (4.0-11.0)
[2017-03-30 04:26] LABS: ANION GAP 14 (6-14); BLOOD UREA NITROGEN 22 mg/dL (8-26); CALCIUM 8.1 mg/dL (8.5-10.1); CARBON DIOXIDE 19 mmol/L (21-32); CHLORIDE 115 mmol/L (98-107); CREATININE 1.4 mg/dL (0.7-1.3); GFR 48.5; GLUCOSE 91 mg/dL (70-99); PHOSPHORUS 2.9 mg/dL (2.6-4.7); POTASSIUM 3.9 mmol/L (3.5-5.1); SODIUM 148 mmol/L (136-145)
[2017-03-30] MEDS ORDERED: BISACODYL 10 MG SUPP.RECT. RC (08:00)
[2017-03-30] MEDS: IPRATRPIUM/ALBUTEROL 0.5/2.5MG 3 ML NEBU. NEB ×4 (08:23→20:22)
[2017-03-30] MEDS: CITALOPRAM 20 MG TABLET. PO (09:00)
[2017-03-30] MEDS: SENNOSIDES/DOCUSATE 8.6/50MG TABLET. PO ×2 (09:00→20:44)
[2017-03-30] MEDS: MAGNESIUM OXIDE 400 MG TABLET PO ×2 (09:00→20:44)
[2017-03-30] MEDS: ISOSORBIDE MONONITRATE ER 30 MG TAB.ER.24H PO (09:00)
[2017-03-30] MEDS: METOPROLOL SUCC 24HR ER 50 MG TAB.ER.24H. PO (09:00)
[2017-03-30] MEDS: TICAGRELOR 90 MG TABLET. PO (09:00)
[2017-03-30] MEDS: DOCUSATE SODIUM 100 MG CAPSULE. PO ×2 (09:00→20:44)
[2017-03-30] MEDS ORDERED: NON FORMULARY ITEM (Fluticasone/Salmeterol (Advair 100-50 Diskus) 1 PUFF) IH (09:00)
[2017-03-30] MEDS: TAMSULOSIN 0.4 MG CAP.ER.24H. PO (09:00)
[2017-03-30] MEDS: FINASTERIDE 5 MG TABLET. PO (09:00)
[2017-03-30] MEDS: fentaNYL PF VIAL 100 MCG/2 ML VIAL IV (09:36)
[2017-03-30 09:57] LABS: LACTIC ACID 0.8 mmol/L (0.4-2.0)
[2017-03-30] MEDS: PIPERACILLIN/TAZOBACTAM 2.25 GM in IV NORMAL SALINE 50ML 50 ML IV ×3 (10:00→23:29)
[2017-03-30] MEDS: BUDESONIDE 0.5 MG/2 ML NEBU. NEB ×2 (11:29→20:22)
[2017-03-30] MEDS: ALBUTEROL SULFATE 2.5 MG/3 ML NEBU. NEB ×2 (11:30→20:53)
[2017-03-30] MEDS ORDERED: PIPERACILLIN/TAZOBACTAM 3.375 GM in IV NORMAL SALINE 50ML 50 ML IV (12:00)
[2017-03-30] MEDS: MAGNESIUM SULFATE 2GM 50 ML IV (17:00)
[2017-03-30] MEDS: ATORVASTATIN CALCIUM 10 MG TABLET. PO (20:44)
[2017-03-30] MEDS: DONEPEZIL HCL 10 MG TABLET. PO (20:44)
[2017-03-30] MEDS: MIRTAZAPINE 15 MG TABLET PO (20:44)
[2017-03-30] MEDS: ACETAMINOPHEN 325 MG TABLET. PO (20:44)
[2017-03-31] MEDS: PIPERACILLIN/TAZOBACTAM 2.25 GM in IV NORMAL SALINE 50ML 50 ML IV ×2 (05:47→13:07)
[2017-03-31] MEDS: ALBUTEROL SULFATE 2.5 MG/3 ML NEBU. NEB ×5 (06:00→18:00)
[2017-03-31] MEDS: CITALOPRAM 20 MG TABLET. PO (08:29)
[2017-03-31] MEDS: DOCUSATE SODIUM 100 MG CAPSULE. PO ×3 (08:29→21:00)
[2017-03-31] MEDS: TAMSULOSIN 0.4 MG CAP.ER.24H. PO (08:29)
[2017-03-31] MEDS: METOPROLOL SUCC 24HR ER 50 MG TAB.ER.24H. PO (08:30)
[2017-03-31] MEDS: FINASTERIDE 5 MG TABLET. PO (08:30)
[2017-03-31] MEDS: ISOSORBIDE MONONITRATE ER 30 MG TAB.ER.24H PO (08:30)
[2017-03-31] MEDS: SENNOSIDES/DOCUSATE 8.6/50MG TABLET. PO ×3 (08:30→21:00)
[2017-03-31] MEDS: MAGNESIUM OXIDE 400 MG TABLET PO (08:30)
[2017-03-31] MEDS: TICAGRELOR 90 MG TABLET. PO (08:30)
[2017-03-31] MEDS: BUDESONIDE 0.5 MG/2 ML NEBU. NEB ×2 (08:37→19:49)
[2017-03-31] MEDS: IPRATRPIUM/ALBUTEROL 0.5/2.5MG 3 ML NEBU. NEB ×4 (08:37→19:49)
[2017-03-31 13:12] LABS: ADD MAN DIFF? NO
[2017-03-31 13:24] LABS: ANION GAP 9 (6-14); BLOOD UREA NITROGEN 19 mg/dL (8-26); CARBON DIOXIDE 21 mmol/L (21-32); CHLORIDE 122 mmol/L (98-107); CREATININE 1.5 mg/dL (0.7-1.3); GFR 44.8; GLUCOSE 109 mg/dL (70-99); POTASSIUM 3.3 mmol/L (3.5-5.1); SODIUM 152 mmol/L (136-145)
[2017-03-31 13:27] LABS: BASO % 0 % (0-3); EOS % 0 % (0-3); HEMATOCRIT 30.2 % (39.0-53.0); HEMOGLOBIN 9.6 g/dL (13.0-17.5); LYMPH # 1.4 x10^3/uL (1.0-4.8); LYMPH % 4 % (24-48); MEAN CORPUSCULAR HEMOGLOBIN 27 pg (25-35); MEAN CORPUSCULAR HGB CONC 32 g/dL (31-37); MEAN CORPUSCULAR VOLUME 85 fL (79-100); MONO # 0.7 x10^3/uL (0.0-1.1); MONO % 2 % (0-9); NEUT % 94 % (31-73); PLATELET COUNT 419 x10^3/uL (140-400); RED BLOOD COUNT 3.57 x10^6/uL (4.30-5.70); RED CELL DISTRIBUTION WIDTH 21.6 % (11.5-14.5); WHITE BLOOD COUNT 32.1 x10^3/uL (4.0-11.0)
[2017-03-31 13:32] LABS: MAGNESIUM 2.2 mg/dL (1.8-2.4)
[2017-03-31 15:05] LABS: % SAT IRON 12 % (15-34); IRON,SERUM 13 ug/dL (65-175)
[2017-03-31] MEDS: cefTRIAXone IV Push 1 GM VIAL. IVP (15:50)
[2017-03-31] MEDS: MAGNESIUM SULFATE 2GM 50 ML IV (17:00)
[2017-03-31] MEDS: DONEPEZIL HCL 10 MG TABLET. PO (20:50)
[2017-03-31] MEDS: ATORVASTATIN CALCIUM 10 MG TABLET. PO (20:50)
[2017-03-31] MEDS: MIRTAZAPINE 15 MG TABLET PO (20:50)
[2017-03-31] MEDS: LACTOBACILLUS RHAMNOSUS GG 1 CAPSULE. PO (20:50)
[2017-03-31 22:05] LABS: C DIFF BY PCR Positive (Negative)
[2017-04-01] MEDS: metroNIDAZOLE 500 MG TABLET PO ×2 (00:01→09:00)
[2017-04-01 05:23] LABS: HEMATOCRIT 32.3 % (39.0-53.0); HEMOGLOBIN 10.2 g/dL (13.0-17.5); MEAN CORPUSCULAR HEMOGLOBIN 27 pg (25-35); MEAN CORPUSCULAR HGB CONC 32 g/dL (31-37); MEAN CORPUSCULAR VOLUME 86 fL (79-100); PLATELET COUNT 406 x10^3/uL (140-400); RED BLOOD COUNT 3.77 x10^6/uL (4.30-5.70); RED CELL DISTRIBUTION WIDTH 21.8 % (11.5-14.5); WHITE BLOOD COUNT 31.7 x10^3/uL (4.0-11.0)
[2017-04-01] MEDS: ALBUTEROL SULFATE 2.5 MG/3 ML NEBU. NEB ×4 (06:00→18:00)
[2017-04-01] MEDS: BUDESONIDE 0.5 MG/2 ML NEBU. NEB ×2 (07:44→19:39)
[2017-04-01] MEDS: IPRATRPIUM/ALBUTEROL 0.5/2.5MG 3 ML NEBU. NEB ×4 (07:44→19:39)
[2017-04-01 08:20] LABS: SEDIMENTATION RATE 14 (0-15)
[2017-04-01] MEDS: TICAGRELOR 90 MG TABLET. PO (08:53)
[2017-04-01] MEDS: METOPROLOL SUCC 24HR ER 50 MG TAB.ER.24H. PO (08:53)
[2017-04-01] MEDS: LACTOBACILLUS RHAMNOSUS GG 1 CAPSULE. PO ×2 (08:53→22:48)
[2017-04-01] MEDS: FINASTERIDE 5 MG TABLET. PO (08:53)
[2017-04-01] MEDS: PANTOPRAZOLE 40 MG TABLET.DR. PO (08:54)
[2017-04-01] MEDS: TAMSULOSIN 0.4 MG CAP.ER.24H. PO (08:54)
[2017-04-01] MEDS: CITALOPRAM 20 MG TABLET. PO (08:55)
[2017-04-01] MEDS: ISOSORBIDE MONONITRATE ER 30 MG TAB.ER.24H PO (08:55)
[2017-04-01] MEDS: DOCUSATE SODIUM 100 MG CAPSULE. PO ×2 (09:00→21:00)
[2017-04-01] MEDS: SENNOSIDES/DOCUSATE 8.6/50MG TABLET. PO ×2 (09:00→21:00)
[2017-04-01 12:29] LABS: ALBUMIN 1.7 g/dL (3.4-5.0); ALBUMIN/GLOBULIN RATIO 0.5 (1.0-1.7); ALK PHOS 75 U/L (46-116); ALT (SGPT) 14 U/L (16-63); ANION GAP 12 (6-14); AST (SGOT) 22 U/L (15-37); BLOOD UREA NITROGEN 21 mg/dL (8-26); BUN/CREATININE RATIO 13 (6-20); CARBON DIOXIDE 19 mmol/L (21-32); CHLORIDE 125 mmol/L (98-107); CREATININE 1.6 mg/dL (0.7-1.3); GFR 41.6; GLUCOSE 82 mg/dL (70-99); SODIUM 156 mmol/L (136-145); TOTAL BILIRUBIN 0.3 mg/dL (0.2-1.0); TOTAL PROTEIN 5.2 g/dL (6.4-8.2)
[2017-04-01 12:32] LABS: POTASSIUM 2.9 mmol/L (3.5-5.1)
[2017-04-01] MEDS: VANCOMYCIN 125 MG/2.5 ML ORAL SOLUTION. PO ×3 (13:57→22:48)
[2017-04-01] MEDS: POTASSIUM CL 40MEQ IN 0.9%NACL 1,000 ML IV (13:59)
[2017-04-01] MEDS: cefTRIAXone IV Push 1 GM VIAL. IVP (16:23)
[2017-04-01] MEDS: MIRTAZAPINE 15 MG TABLET PO (22:48)
[2017-04-01] MEDS: ATORVASTATIN CALCIUM 10 MG TABLET. PO (22:48)
[2017-04-01] MEDS: DONEPEZIL HCL 10 MG TABLET. PO (22:48)
[2017-04-01] MEDS: ACETAMINOPHEN 325 MG TABLET. PO (22:48)
[2017-04-02] MEDS: ALBUTEROL SULFATE 2.5 MG/3 ML NEBU. NEB ×4 (06:00→18:00)
[2017-04-02] MEDS: POTASSIUM CL 40MEQ IN 0.9%NACL 1,000 ML IV ×2 (06:23→15:25)
[2017-04-02] MEDS: PANTOPRAZOLE 40 MG TABLET.DR. PO (07:30)
[2017-04-02 07:34] LABS: HEMATOCRIT 31.5 % (39.0-53.0); HEMOGLOBIN 9.8 g/dL (13.0-17.5); MEAN CORPUSCULAR HEMOGLOBIN 27 pg (25-35); MEAN CORPUSCULAR HGB CONC 31 g/dL (31-37); MEAN CORPUSCULAR VOLUME 86 fL (79-100); PLATELET COUNT 405 x10^3/uL (140-400); RED BLOOD COUNT 3.67 x10^6/uL (4.30-5.70); RED CELL DISTRIBUTION WIDTH 21.7 % (11.5-14.5); WHITE BLOOD COUNT 21.8 x10^3/uL (4.0-11.0)
[2017-04-02 07:53] LABS: ANION GAP 16 (6-14); BLOOD UREA NITROGEN 20 mg/dL (8-26); CALCIUM 8.2 mg/dL (8.5-10.1); CARBON DIOXIDE 19 mmol/L (21-32); CHLORIDE 129 mmol/L (98-107); CREATININE 1.7 mg/dL (0.7-1.3); GFR 38.8; GLUCOSE 67 mg/dL (70-99); PHOSPHORUS 3.3 mg/dL (2.6-4.7); POTASSIUM 3.1 mmol/L (3.5-5.1)
[2017-04-02] MEDS: BUDESONIDE 0.5 MG/2 ML NEBU. NEB ×2 (07:56→20:12)
[2017-04-02] MEDS: IPRATRPIUM/ALBUTEROL 0.5/2.5MG 3 ML NEBU. NEB ×4 (07:56→20:13)
[2017-04-02 07:59] LABS: SODIUM 164 mmol/L (136-145)
[2017-04-02] MEDS: METOPROLOL SUCC 24HR ER 50 MG TAB.ER.24H. PO (09:00)
[2017-04-02] MEDS: TICAGRELOR 90 MG TABLET. PO (09:00)
[2017-04-02] MEDS: LACTOBACILLUS RHAMNOSUS GG 1 CAPSULE. PO ×2 (09:00→21:00)
[2017-04-02] MEDS: CITALOPRAM 20 MG TABLET. PO (09:00)
[2017-04-02] MEDS: FINASTERIDE 5 MG TABLET. PO (09:00)
[2017-04-02] MEDS: DOCUSATE SODIUM 100 MG CAPSULE. PO ×2 (09:00→21:00)
[2017-04-02] MEDS: TAMSULOSIN 0.4 MG CAP.ER.24H. PO (09:00)
[2017-04-02] MEDS: VANCOMYCIN 125 MG/2.5 ML ORAL SOLUTION. PO ×4 (09:00→21:00)
[2017-04-02] MEDS: SENNOSIDES/DOCUSATE 8.6/50MG TABLET. PO ×2 (09:00→21:00)
[2017-04-02] MEDS: ISOSORBIDE MONONITRATE ER 30 MG TAB.ER.24H PO (09:00)
[2017-04-02 09:48] LABS: FOLATE 11.01 ng/ml (3.2-20.0)
[2017-04-02 09:48] LABS: VITAMIN-B12 548 pg/mL (247-911)
[2017-04-02] MEDS: cefTRIAXone IV Push 1 GM VIAL. IVP (15:00)
[2017-04-02] MEDS: POTASSIUM CL 20MEQ-0.45% NACL 1,000 ML IV (19:30)
[2017-04-02] MEDS: DONEPEZIL HCL 10 MG TABLET. PO (21:00)
[2017-04-02] MEDS: ATORVASTATIN CALCIUM 10 MG TABLET. PO (21:00)
[2017-04-02] MEDS: MIRTAZAPINE 15 MG TABLET PO (21:00)
[2017-04-03] MEDS: POTASSIUM CL 20MEQ-0.45% NACL 1,000 ML IV ×2 (03:30→10:25)
[2017-04-03 05:58] LABS: ANION GAP 20 (6-14); BLOOD UREA NITROGEN 21 mg/dL (8-26); CALCIUM 8.7 mg/dL (8.5-10.1); CARBON DIOXIDE 14 mmol/L (21-32); CHLORIDE 131 mmol/L (98-107); CREATININE 1.8 mg/dL (0.7-1.3); GFR 36.3; GLUCOSE 58 mg/dL (70-99); MAGNESIUM 2.4 mg/dL (1.8-2.4)
[2017-04-03] MEDS: ALBUTEROL SULFATE 2.5 MG/3 ML NEBU. NEB ×3 (06:00→12:00)
[2017-04-03 06:08] LABS: SODIUM 165 mmol/L (136-145)
[2017-04-03 06:11] LABS: ADD MAN DIFF? NO
[2017-04-03 06:15] LABS: BASO % 0 % (0-3); EOS % 0 % (0-3); HEMATOCRIT 31.5 % (39.0-53.0); HEMOGLOBIN 10.1 g/dL (13.0-17.5); LYMPH % 12 % (24-48); MEAN CORPUSCULAR HEMOGLOBIN 28 pg (25-35); MEAN CORPUSCULAR HGB CONC 32 g/dL (31-37); MEAN CORPUSCULAR VOLUME 86 fL (79-100); MONO # 0.9 x10^3/uL (0.0-1.1); MONO % 5 % (0-9); NEUT % 83 % (31-73); PLATELET COUNT 416 x10^3/uL (140-400); RED BLOOD COUNT 3.65 x10^6/uL (4.30-5.70); RED CELL DISTRIBUTION WIDTH 21.9 % (11.5-14.5)
[2017-04-03] MEDS: BUDESONIDE 0.5 MG/2 ML NEBU. NEB (07:16)
[2017-04-03] MEDS: IPRATRPIUM/ALBUTEROL 0.5/2.5MG 3 ML NEBU. NEB ×2 (07:16→11:15)
[2017-04-03] MEDS: PANTOPRAZOLE 40 MG TABLET.DR. PO (07:30)
[2017-04-03] MEDS: TICAGRELOR 90 MG TABLET. PO (09:00)
[2017-04-03] MEDS: SENNOSIDES/DOCUSATE 8.6/50MG TABLET. PO (09:00)
[2017-04-03] MEDS: CITALOPRAM 20 MG TABLET. PO (09:00)
[2017-04-03] MEDS: FINASTERIDE 5 MG TABLET. PO (09:00)
[2017-04-03] MEDS: TAMSULOSIN 0.4 MG CAP.ER.24H. PO (09:00)
[2017-04-03] MEDS: LACTOBACILLUS RHAMNOSUS GG 1 CAPSULE. PO (09:00)
[2017-04-03] MEDS: DOCUSATE SODIUM 100 MG CAPSULE. PO (09:00)
[2017-04-03] MEDS: METOPROLOL SUCC 24HR ER 50 MG TAB.ER.24H. PO (09:00)
[2017-04-03] MEDS: ISOSORBIDE MONONITRATE ER 30 MG TAB.ER.24H PO (09:00)
[2017-04-03] MEDS: VANCOMYCIN 125 MG/2.5 ML ORAL SOLUTION. PO (11:26)
== END 2017-04-03 13:40 | DRG 871 ==
LOC: ER 08:58 → 6 SOUTH 10:05
DX: A41.9 Sepsis, unspecified organism (principal); E43 Unspecified severe protein-calorie malnutrition; G93.40 Encephalopathy, unspecified; G93.41 Metabolic encephalopathy; A04.72 Enterocolitis due to Clostridium difficile, not specified as recurrent; L89.153 Pressure ulcer of sacral region, stage 3; N17.9 Acute kidney failure, unspecified; J18.9 Pneumonia, unspecified organism; E87.0 Hyperosmolality and hypernatremia; N39.0 Urinary tract infection, site not specified; Z68.1 Body mass index [BMI] 19.9 or less, adult; Z51.5 Encounter for palliative care; E86.0 Dehydration; F03.90 Unspecified dementia, unspecified severity, without behavioral disturbance, psychotic disturbance, mood disturbance, and anxiety; J44.9 Chronic obstructive pulmonary disease, unspecified; E87.6 Hypokalemia; M19.90 Unspecified osteoarthritis, unspecified site; R13.12 Dysphagia, oropharyngeal phase; Z66 Do not resuscitate; E78.00 Pure hypercholesterolemia, unspecified; I12.9 Hypertensive chronic kidney disease with stage 1 through stage 4 chronic kidney disease, or unspecified chronic kidney disease; K59.00 Constipation, unspecified; N40.0 Benign prostatic hyperplasia without lower urinary tract symptoms; N18.9 Chronic kidney disease, unspecified; E78.5 Hyperlipidemia, unspecified; I73.9 Peripheral vascular disease, unspecified; I25.10 Atherosclerotic heart disease of native coronary artery without angina pectoris; D64.9 Anemia, unspecified; Z87.440 Personal history of urinary (tract) infections; Z87.891 Personal history of nicotine dependence; Z82.49 Family history of ischemic heart disease and other diseases of the circulatory system; Z98.49 Cataract extraction status, unspecified eye
CPT/HCPCS: 36415; 70450; 71045; 80048; 80053; 81001; 82274; 82607; 82746; 83540; 83550; 83605; 83735; 83880; 84100; 84443; 84484; 85007; 85025; 85027; 85610; 85651; 85730; 87040; 87086; 87186; 87324; 87641; 93005; 94640; 94760; 96361; 96365; 99285; 99285-25; J0690; J0696; J2543; J3010; J3480; J7030; J7620; J7626